=== PATIENT | female | born 1995 | race Caucasian/White ===

== ENCOUNTER 2017-01-11 11:52 | Emergency (ER) | payer OTHER ==
[~2017-01-11] VITALS: Ht 170.1 cm; Wt 85.7 kg
[~2017-01-11 11:52] MED LIST: ANTIVERT25 MG PO; MACROBID100 M1 PO; MIRALAX POWDER17 G1 PO; NAPROSYN500 MG PO; ZOFRAN ODT4 MG SL; ZOFRAN4 MG PO
[2017-01-11 12:24] LABS: BASO % 0.4 % (0.0-1.0); EOS % 0.4 % (1.0-4.0); HEMATOCRIT 38.9 % (37.0-47.0); HEMOGLOBIN 12.5 g/dl (12.0-16.0); LYMPH % 25.1 % (27.0-41.0); MEAN CELL VOLUME 81.7 fl (81.0-99.0); MEAN CORPUSCULAR HGB 26.3 pg (27.0-31.0); MEAN CORPUSCULAR HGB CONC 32.1 g/dl (33.0-37.0); MEAN PLATELET VOLUME 11.6 fl (9.6-12.3); MONO # 0.9 10*3/uL (0.1-1.0); MONO % 10.7 % (3.0-9.0); NEUT # 5.1 10*3/uL (2.3-7.9); NEUT % 63.2 % (47.0-73.0); PLATELET COUNT AUTOMATED 225 10*3/uL (130-400); RED BLOOD COUNT 4.76 10*6/uL (4.10-5.10); RED CELL DISTRI WIDTH 16.4 % (0-14.5); WHITE BLOOD COUNT 8.1 10*3/uL (4.8-10.8)
[2017-01-11 12:45] LABS: BILIRUBIN NEGATIVE (NEGATIVE); BLOOD 1+ (NEGATIVE); CLARITY SL CLOUDY (CLEAR); COLOR YELLOW (YELLOW); GLUCOSE NEGATIVE (NEGATIVE); KETONE 2+ (NEGATIVE); LEUKO ESTERASE 2+ (NEGATIVE); NITRITE NEGATIVE (NEGATIVE); UROBILINOGEN 0.2 E.U./dl (0.2-1.0)
[2017-01-11 12:57] LABS: ALBUMIN 4.1 gm/dl (3.1-4.5); ALKALINE PHOSPHATASE 74 U/L (45-117); BUN 8 mg/dl (7-24); CHLORIDE 104 mmol/L (98-107); CREATININE 0.93 mg/dL (0.55-1.02); POTASSIUM 3.7 mmol/L (3.5-5.1); SGOT/AST 12 IU/L (3-35); SGPT/ALT 21 U/L (12-78); SODIUM 137 mmol/L (136-145); TOTAL PROTEIN 7.9 gm/dL (6.4-8.2)
[2017-01-11 13:04] LABS: WBC 21-30 wbc/hpf (0-5)
[2017-01-11 13:05] LABS: BACTERIA 1+
[2017-01-11] MEDS ORDERED: VIBRAMYCIN100 MG PO (13:18)
[2017-01-11] MEDS ORDERED: DIFLUCAN150 MG PO (13:18)
[2017-01-11] MEDS ORDERED: ZOFRAN4 MG PO (13:18)
[2017-01-11] MEDS ORDERED: FLAGYL500 MG PO (13:18)
== END 2017-01-11 13:14 | disposition home or self-care (01) ==
LOC: ED 11:52
PROVIDERS: Nurse Practitioner Family
DX: N73.9 Female pelvic inflammatory disease, unspecified (principal); A59.01 Trichomonal vulvovaginitis; R20.0 Anesthesia of skin; Z79.899 Other long term (current) drug therapy

== ENCOUNTER 2017-01-12 02:19 | Emergency (ER) | payer OTHER ==
[~2017-01-12] VITALS: Ht 170.1 cm; Wt 85.7 kg
[~2017-01-12 02:19] MED LIST changes: +DIFLUCAN150 MG PO; +FLAGYL500 MG PO; +VIBRAMYCIN100 MG PO
== END 2017-01-12 03:49 | disposition home or self-care (01) ==
LOC: ED 02:19
DX: M79.1 Myalgia (principal)

== ENCOUNTER 2017-01-15 21:23 | Inpatient (IN) | payer OTHER ==
[~2017-01-15] VITALS: Ht 170.2 cm; Wt 86.8 kg
[2017-01-15 21:32] VITALS: BP 124/50
[2017-01-15 22:17] LABS: BILIRUBIN NEGATIVE (NEGATIVE); BLOOD NEGATIVE (NEGATIVE); CLARITY SL CLOUDY (CLEAR); COLOR YELLOW (YELLOW); GLUCOSE NEGATIVE (NEGATIVE); KETONE NEGATIVE (NEGATIVE); LEUKO ESTERASE 2+ (NEGATIVE); NITRITE NEGATIVE (NEGATIVE); PH 7.5 (5.0-9.0); SPECIFIC GRAVITY 1.015 (1.005-1.030); UROBILINOGEN 0.2 E.U./dl (0.2-1.0)
[2017-01-15 22:24] LABS: BACTERIA 1+; EPITHELIAL CELLS 16-20; WBC 21-30 wbc/hpf (0-5)
[2017-01-16 01:34] LABS: HEMATOCRIT 38.5 % (37.0-47.0); HEMOGLOBIN 12.3 g/dl (12.0-16.0); MEAN CELL VOLUME 81.2 fl (81.0-99.0); MEAN CORPUSCULAR HGB 25.9 pg (27.0-31.0); MEAN CORPUSCULAR HGB CONC 31.9 g/dl (33.0-37.0); MEAN PLATELET VOLUME 11.5 fl (9.6-12.3); PLATELET COUNT AUTOMATED 207 10*3/uL (130-400); RED BLOOD COUNT 4.74 10*6/uL (4.10-5.10); RED CELL DISTRI WIDTH 15.9 % (0-14.5)
[2017-01-16 01:53] LABS: ALKALINE PHOSPHATASE 71 U/L (45-117); BUN 7 mg/dl (7-24); CHLORIDE 108 mmol/L (98-107); CREATININE 0.97 mg/dL (0.55-1.02); POTASSIUM 3.5 mmol/L (3.5-5.1); SGOT/AST 13 IU/L (3-35); SGPT/ALT 21 U/L (12-78); SODIUM 142 mmol/L (136-145); TOTAL PROTEIN 7.9 gm/dL (6.4-8.2)
[2017-01-16 01:55] LABS: ETHYL ALCOHOL < 3.0 mg/dl (<3)
[2017-01-16 02:00] VITALS: BP 120/67
--- NOTE | 2017-01-16 02:00 | NUR ---
A 21, admitted to 4E, under the services of KAITLIN Kuhn DO with a diagnosis of MEDICATION REACTION. Chief complaint is SWOLLEN LIPS, THIGHT THROAT. Patient arrived via bed from ER. Monitor applied. Initial assessment completed. Vital signs taken and recorded. KAITLIN KUHN DO notified of admission to the unit. Orders received. See assessment for past medical history, medications and allergies. Patient and/or family oriented to unit. visitation policy reviewed. Clothing/patient valuable form completed. AUDREY CHEN
[2017-01-16 02:09] LABS: ATYPICAL LYMPHS 5 % (0-0); BASOPHILS 1 % (0-1); PLATELET SUFFICIENCY NORMAL (NORMAL); TOTAL CELLS COUNTED 100 #CELLS
[2017-01-16 02:49] VITALS: BP 120/67
[2017-01-16 03:02] LABS: URINE AMPHETAMINES < 1000 (1000ng/ml); URINE BARBITURATES < 200 (200ng/ml); URINE BENZODIAZEPINES < 200 (200ng/ml); URINE CANNABINOIDS (THC) < 50 (50ng/ml); URINE COCAINE < 300 (300ng/ml); URINE METHADONE < 300 (300ng/ml); URINE OPIATES < 300 (300ng/ml)
[2017-01-16 03:03] LABS: URINE PHENCYCLIDINE < 25 (25ng/ml)
--- NOTE | 2017-01-16 03:58 | NUR ---
PATIENT RESTING IN BED WITH EYES CLOSED. NO SIGNS OR SYMPTOMS OF DISTRESS NOTED. MOTHER IN CHAIR STAYING WITH PATIENT. WILL CONTINUE TO MONITOR. CALL LIGHT IN REACH.
[2017-01-16 06:42] LABS: HEMATOCRIT 38.4 % (37.0-47.0); HEMOGLOBIN 12.3 g/dl (12.0-16.0); MEAN CELL VOLUME 81.9 fl (81.0-99.0); MEAN CORPUSCULAR HGB 26.2 pg (27.0-31.0); MEAN PLATELET VOLUME 12.5 fl (9.6-12.3); PLATELET COUNT AUTOMATED 216 10*3/uL (130-400); RED BLOOD COUNT 4.69 10*6/uL (4.10-5.10); RED CELL DISTRI WIDTH 16.3 % (0-14.5); WHITE BLOOD COUNT 6.7 10*3/uL (4.8-10.8)
[2017-01-16 07:04] LABS: BURR CELLS FEW; OVALOCYTES FEW; PLATELET SUFFICIENCY NORMAL (NORMAL); TOTAL CELLS COUNTED 100 #CELLS
[2017-01-16 07:11] LABS: BUN 8 mg/dl (7-24); CHLORIDE 110 mmol/L (98-107); CHOLESTEROL 110 mg/dL (<200); CREATININE 0.94 mg/dL (0.55-1.02); PHOSPHOROUS 2.3 mg/dL (2.5-4.9); POTASSIUM 3.7 mmol/L (3.5-5.1); SODIUM 141 mmol/L (136-145); TRIGLYCERIDES 34 mg/dl (<150); VLDL CHOLESTEROL 7 mg/dL (6-40)
[2017-01-16 07:19] LABS: VITAMIN D, 25-HYDROXY 10.9 ng/mL (30-100)
[2017-01-16 07:21] LABS: FREE T4 1.05 ng/dl (0.76-1.46); HDL CHOLESTEROL 57 mg/dl (40-60); LDL CHOLESTEROL 46 mg/dL (9-159); THYROID STIM HORMONE (HS) 0.748 uIU/ml (0.358-4.75)
[2017-01-16 08:00] VITALS: BP 120/80
--- NOTE | 2017-01-16 09:52 | NUR ---
Patient is alert and oriented. Pleasant and cooperative. Patient is now resting comfortably at this time. Kalina Del Angel margareth
[2017-01-16 11:59] VITALS: BP 108/59
--- NOTE | 2017-01-16 13:18 | NUR ---
UP WALKING IN ROOM, STEADY ON FEET, NO COMPLAINTS VOICED SUSAN KEANE SPNR[facility]
--- NOTE | 2017-01-16 14:18 | NUR ---
VISTARIL GIVEN FOR ANXIETY. PER ORDERS. WILL MONITOR.
[2017-01-16 16:00] VITALS: BP 112/58
[2017-01-16] MEDS ORDERED: ZOVIRAX400 MG PO (17:11)
[2017-01-16] MEDS ORDERED: TINDAMAX500 MG PO (17:11)
[2017-01-16] MEDS ORDERED: VITAMIN D5000 UNI1 PO (17:13)
--- NOTE | 2017-01-16 18:09 | NUR ---
[facility] Discharge instructions reviewed with patient/family. Patient receptive and verbalizes understanding. Follow-up care arranged. Written instructions given to patient/family. OMAR DE LA CRUZ
== END 2017-01-16 16:30 | disposition home or self-care (01) | DRG 758 ==
LOC: ED 21:23 → EDHOLD 01-16 01:17 → 4E 01-16 01:17
PROVIDERS: Internal Medicine; Physician Assistant; ADMIT Internal Medicine
DX: A60.04 Herpesviral vulvovaginitis (principal); N73.0 Acute parametritis and pelvic cellulitis; E87.8 Other disorders of electrolyte and fluid balance, not elsewhere classified; A59.9 Trichomoniasis, unspecified; D72.810 Lymphocytopenia; E55.9 Vitamin D deficiency, unspecified; M79.1 Myalgia; E66.9 Obesity, unspecified; F41.9 Anxiety disorder, unspecified; Z79.899 Other long term (current) drug therapy; Y92.89 Other specified places as the place of occurrence of the external cause; T50.995A Adverse effect of other drugs, medicaments and biological substances, initial encounter; Z68.30 Body mass index [BMI] 30.0-30.9, adult

== ENCOUNTER → 2017-01-19 | Outpatient (CLI) | payer OTHER ==
[~2017-01-19] MED LIST changes: +TINDAMAX500 MG PO; +VITAMIN D5000 UNI1 PO; +ZOVIRAX400 MG PO
[2017-01-19 14:06] LABS: BASO % 0.4 % (0.0-1.0); EOS # 0.2 10*3/uL (0.0-0.4); EOS % 2.2 % (1.0-4.0); HEMATOCRIT 42.7 % (37.0-47.0); HEMOGLOBIN 13.8 g/dl (12.0-16.0); LYMPH # 2.9 10*3/uL (1.3-4.4); LYMPH % 31.7 % (27.0-41.0); MEAN CELL VOLUME 81.8 fl (81.0-99.0); MEAN CORPUSCULAR HGB 26.4 pg (27.0-31.0); MEAN CORPUSCULAR HGB CONC 32.3 g/dl (33.0-37.0); MEAN PLATELET VOLUME 11.5 fl (9.6-12.3); MONO # 0.8 10*3/uL (0.1-1.0); NEUT # 5.1 10*3/uL (2.3-7.9); NEUT % 56.4 % (47.0-73.0); PLATELET COUNT AUTOMATED 292 10*3/uL (130-400); RED BLOOD COUNT 5.22 10*6/uL (4.10-5.10); RED CELL DISTRI WIDTH 16.3 % (0-14.5)
[2017-01-19 14:27] LABS: IRON 45 ug/dL (50-170); TOTAL IRON BINDING CAPACITY 417 ug/dl (250-450)
== END | disposition home or self-care (01) ==
LOC: LAB 13:11
PROVIDERS: Dietitian, Registered
DX: E61.1 Iron deficiency (principal)